=== PATIENT | female | born 1945 | race Caucasian/White ===

== ENCOUNTER 2021-03-06 09:36 | Inpatient (IN) | payer BC ==
[~2021-03-06] VITALS: Ht 175.3 cm; Wt 111.1 kg
[2021-03-06] MEDS ORDERED: [UNRECOGNIZED DRUG - OTHER] (10:18)
[2021-03-06] MEDS ORDERED: FLEET ENEMA133 ML RECTAL (10:19)
[2021-03-06] MEDS ORDERED: FUROSEMIDE 40 M40 MG PO (10:21)
[2021-03-06] MEDS ORDERED: ACETAMINOPHEN PO (10:21)
[2021-03-06] MEDS ORDERED: JANUVIA100 MG PO (10:21)
[2021-03-06] MEDS ORDERED: STOOL SOFTENER100 MG PO (10:22)
[2021-03-06] MEDS ORDERED: VITAMIN D250 MCG PO (10:22)
[2021-03-06] MEDS ORDERED: LEVOTHYROXINE100 MC2 PO (10:22)
[2021-03-06] MEDS ORDERED: KLOR-CON 10 ER10 MEQ PO (10:23)
[2021-03-06 10:31] LABS: ABSOLUTE BASOPHILS 0.1 thou/uL (0.0-0.2); ABSOLUTE EOSINOPHILS 0.3 thou/uL (0.0-0.7); ABSOLUTE MONOCYTES 1.1 thou/uL (0.0-1.2); ABSOLUTE NEUTROPHILS 7.7 thou/uL (1.6-8.1); BASOPHILS 1.3 %; HEMATOCRIT 39.9 % (37.0-47.0); HEMOGLOBIN 13.3 gm/dL (12.0-15.0); LYMPHOCYTES 17.8 %; MCH 32.9 pg (26.0-34.0); MCHC 33.3 g/dL (28.0-37.0); MCV 98.9 fL (80.0-100.0); MONOCYTES 9.7 %; MPV 9.9 fl. (7.2-11.1); NUCLEATED RBCS 0 /100WBC; PLATELET COUNT* 247 thou/uL (150-400); POLYS 68.2 %; RBC 4.03 mil/uL (4.20-5.00); RDW-CV 14.4 % (10.5-14.5); WBC 11.3 thou/uL (4.0-11.0)
[2021-03-06 10:44] LABS: URINE BILIRUBIN NEGATIVE (Negative); URINE BLOOD NEGATIVE (Negative); URINE CLARITY CLEAR; URINE COLOR YELLOW; URINE GLUCOSE-RANDOM NEGATIVE (Negative); URINE KETONES NEGATIVE (Negative); URINE LEUKOCYTES-REFLEX NEGATIVE (Negative); URINE NITRITE-REFLEX NEGATIVE (Negative); URINE PROTEIN TRACE (Negative); URINE SPECIFIC GRAVITY 1.015 (1.005-1.030)
[2021-03-06 10:48] LABS: CALCIUM 8.8 mg/dL (8.5-10.1); CREATININE 1.4 mg/dL (0.6-1.3); POTASSIUM 4.3 mmol/L (3.5-5.1)
[2021-03-06 10:52] LABS: ALBUMIN 3.4 g/dL (3.4-5.0); TOTAL BILIRUBIN 0.7 mg/dL (<0.1-1.0); TOTAL PROTEIN 7.7 g/dL (6.4-8.2)
--- NOTE | 2021-03-06 16:10 | EKG ---
[place] [address] ELECTROCARDIOGRAM REPORT Name: JIN CAR Room: [place] [address] ADM IN .R.#: [id number] Admission: 03/06/21 Attend Phys: Carlos Ramos, Discharge: Date of : 41 Date of Service: 03/06/21 0944 Report #: [id number] THIS REPORT FOR: //name// [facility] ED Test Date: 2021-03-06 Test Time: 09:44:50 Pat Name: JIN CAR Department: Room: [facility] Gender: F Steel Placer: SALOME : 1945 Requested By: Adilson Orr Order Number: [id number] MD: Simon Banuelos Measurements Intervals [place] Rate: 84 P: 87 OK: 200 QRS: -15 QRSD: 102 T: 29 QT: 383 QTc: 453 Interpretive Statements Sinus rhythm Ventricular premature complex Left atrial enlargement Borderline left axis deviation Low voltage, precordial leads No previous ECG available for comparison Electronically Signed On 03-06-2021 16:10:18 CDT by Simon Banuelos [email or web address] <ELECTRONICALLY SIGNED> By: Simon Banuelos MD, [facility] 03/06/21 1610 0944 0944 Simon Banuelos MD, [facility] /EPI
[2021-03-06 17:12] VITALS: BP 128/59
[2021-03-06 21:00] VITALS: BP 139/53
[2021-03-07 01:00] VITALS: BP 98/38
[2021-03-07 03:59] LABS: ABSOLUTE BASOPHILS 0.1 thou/uL (0.0-0.2); ABSOLUTE EOSINOPHILS 0.3 thou/uL (0.0-0.7); ABSOLUTE LYMPHOCYTES 1.8 thou/uL (0.8-5.3); ABSOLUTE MONOCYTES 1.1 thou/uL (0.0-1.2); ABSOLUTE NEUTROPHILS 6.6 thou/uL (1.6-8.1); BASOPHILS 0.8 %; EOSINOPHILS 2.9 %; HEMATOCRIT 35.4 % (37.0-47.0); LYMPHOCYTES 18.1 %; MCHC 33.8 g/dL (28.0-37.0); MCV 100.4 fL (80.0-100.0); MONOCYTES 11.3 %; MPV 9.5 fl. (7.2-11.1); NUCLEATED RBCS 0 /100WBC; PLATELET COUNT* 223 thou/uL (150-400); POLYS 66.9 %; RBC 3.52 mil/uL (4.20-5.00); RDW-CV 14.2 % (10.5-14.5); WBC 9.9 thou/uL (4.0-11.0)
[2021-03-07 04:23] LABS: CREATININE 1.4 mg/dL (0.6-1.3); POTASSIUM 4.2 mmol/L (3.5-5.1)
[2021-03-07 05:00] VITALS: BP 104/39
[2021-03-07 08:53] VITALS: BP 120/39
--- NOTE | 2021-03-07 14:31 | NUR ---
CM ASSESSMENT: PT A&O, NORMALLY INDEPENDENT WITH ADL'S, AND ACTIVE. PT RESIDES AT HOME WITH SPOUSE. PT'S SPOUSE DOES ALL DRIVING FOR THE HOUSEHOLD. 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 PT USES WALKER FOR MOBILITY. PT HAS PAST HX OF HH. PT HAS PAST HX AT [facility] SNF. CM WILL REMAIN AVAILABLE TO ASSIST AND FOLLOW NEEDED.
--- NOTE | 2021-03-07 15:16 | NUR ---
WOUND NURSE: PATIENT SEEN TO ADDRESS LESIONS ON BILATERAL LOWER EXTREMITIES. PRESENTS WITH ONE SHALLOW LESON ON RIGHT PRETIBIAL ASPECT MEASURING 4.8 X 2.0 X 0.1 CM. PRESNTS WITH PINK NONGRANULATING TISSUE IN THE WOUND BED. TWO LESIONS ON THE LLE, ANTERIOR 4.0 X 2.2 X 0.1 CM. MEDIAL 3.4 X 2.5 X 0.1 CM ALSO WITH PINK NONGRANULATING TISSUE IN THE WOUND. SMALL AMOUNT OF SEROUSANGUINOUS DRAINAGE PRESENT. TRACE PITTING EDEMA BLE. LOWER LEGS AND FEET COLD WITH RUBOR IN DISTAL FEET AND TOES. TOES WITH CAPILARY REFILL > 3 SECONDS. BLE CLEANSED WITH SOAP AND WATER, RINSED, THEN PATTED DRY. APPLIED AQUACEL AG TO EACH WOUND AND COVERED WITH ABDS, WRAPPED IWTH KERLEX AND SECURED WITH TAPE. PATIENT WAS SEEN BY DR HERNANDEZ AND ARTERIAL STUDY TO BLE ORDERED. PATIENT INSTRUCTED ON MEASURES TO PROMOTE HEALING AND PREVENT COMPLICATIONS. STATES SHE UNDERSTANDS.
[2021-03-07 16:26] VITALS: BP 110/31
--- NOTE | 2021-03-07 18:13 | NUR ---
PATIENT ARRIVED TO UNIT FROM ER AT APPROX. 0915. PATIENT IS A&OX4, PLEASANT AND COOPERATIVE WITH CARES. PATIENT HAS WOUNDS TO BLE AND WAS SEEN BY WOUND CARE NURSE WELL PODIATRY. PATIENT HAS ONLY REQUIRED PRN PAIN MEDICATION X1 TODAY WITH COMPLETE RESULTS. PUREWICK IS IN PLACE PATIENT IS BEDREST. CALL LIGHT AND FREQUENTLY USED ITEMS WITHIN REACH.
[2021-03-07 19:26] VITALS: BP 115/40
[2021-03-08 08:00] VITALS: BP 124/88
[2021-03-08 08:01] VITALS: BP 124/88
--- NOTE | 2021-03-08 13:34 | NUR ---
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
[2021-03-08 14:59] VITALS: BP 124/88
--- NOTE | 2021-03-08 14:59 | NUR ---
Therapies evaluated Pt, both PT and OT recommending home with HH. CM spoke with Pt, plan dc to home tomorrow with [facility] . CM faxed initial referral, dc orders will need to be faxed tomorrow to [phone]. CM updated Pt's on POC.
[2021-03-08 16:00] VITALS: BP 123/53
--- NOTE | 2021-03-08 18:09 | NUR ---
PATIENT RESTING IN BED. ALERT AND ORIENTED X4. PERIWICK INPLACE TO CONTINUOUS SUCTION WITHOUT DIFFICULTIES. Q2 TURNS. IV TO LEFT AC, SALINE LOCKED, PATENT. ULCER TO LEGS, UNABLE TO ASSESS DUE TO DRESSINGS. DRESSINGS C/D/I. C/O PAIN, HYDROCODONE X1 GIVEN. BLOOD SUGARS MONITORED, NO INSULIN GIVEN. BED IN LOW/LOCKED POSTION. CALL LIGTH WITHIN REACH. ALL QUESTIONS AND CONCERNS ADDRESSED.
[2021-03-08 20:00] VITALS: BP 150/56
--- NOTE | 2021-03-09 04:53 | NUR ---
PT A&O X 4. ON RA. MEDS GIVEN ORDERED. HYDROCODONE GIVEN X1 FOR PAIN. PUREWICK IN PLACE. DRESSINGS C/D/I. CALL LIGHT WITHIN REACH. WILL CONTINUE TO MONITOR.
[2021-03-09 05:22] LABS: HEMATOCRIT 36.3 % (37.0-47.0); HEMOGLOBIN 12.1 gm/dL (12.0-15.0); MCH 33.1 pg (26.0-34.0); MCHC 33.4 g/dL (28.0-37.0); MCV 99.1 fL (80.0-100.0); MPV 9.8 fl. (7.2-11.1); RBC 3.66 mil/uL (4.20-5.00); RDW-CV 14.1 % (10.5-14.5); WBC 7.8 thou/uL (4.0-11.0)
[2021-03-09 05:47] LABS: CALCIUM 8.3 mg/dL (8.5-10.1); CREATININE 1.3 mg/dL (0.6-1.3); POTASSIUM 3.9 mmol/L (3.5-5.1)
[2021-03-09 09:15] VITALS: BP 129/58
[2021-03-09 16:00] VITALS: BP 133/50
[2021-03-09 20:55] VITALS: BP 127/44
--- NOTE | 2021-03-10 05:04 | NUR ---
PATIENT HAS REMAINED ALERT AND ORIENTED X 4 WITH SLIGHT FORGETFULNESS. UP TO BSC WITH MIN/MOD ASSIST OF 2. MEDICATED FOR PAIN X 1 OF THIS WRITING. TURNED Q2H. FALL PRECAUTIONS IN PLACE. VITAL SIGNS STABLE. CONTINUE TO MONITOR.
[2021-03-10 07:50] VITALS: BP 114/36
[2021-03-10 17:32] VITALS: BP 92/63
[2021-03-10 21:35] VITALS: BP 120/39
--- NOTE | 2021-03-11 04:52 | NUR ---
PATIENT HAS REMAINED ALERT AND ORIENTED X 4 THROUGHOUT THE SHIFT. HAS NOT REQUIRED PRN PAIN MEDICATION OF THIS WRITING FOR THIS SHIFT. UP TO BSC WITH MOD ASSIST OF ONE, GAIT BELT AND WALKER. VITAL SIGNS STABLE WITH SOFT BP. MEDICATED FOR CONSTIPATION AT HS. NO RESULTS AT PRESENT. FALL PRECAUTIONS IN PLACE. CONTINUE TO MONITOR.
[2021-03-11 08:30] VITALS: BP 131/54
--- NOTE | 2021-03-11 13:21 | NUR ---
Wound care to see. Podiatry following. CM spoke with Pt this AM, Pt stated that she did not want to dc to SNF, she wants to go home with [facility], but she wants her feet to stop bleeding. spoke with Pt, Pt now in agreement with SNF. Therapies to see today. CM to fax referral to [facility] once evals complete. Following.
[2021-03-11 16:55] VITALS: BP 104/48
--- NOTE | 2021-03-11 17:18 | NUR ---
WOUND NURSE: PATIENT SEEN FOR FOLLOW UP ASSESSMENT PERTAINING TO BLE VASCULAR WOUNDS. WOUND BED IS RED, SHALLOW, AND MOIST. THERE IS A SMALL AMOUNT OF SEROUSANGUINOUS DRAINAGE FROM EACH WOUND. WOUND EDGES WITH PINK SCAR TISSUE FORMATION AROUND THE EDGES. WOUND CARE PROVIDED PRESCRIBED. THIS WAS TOLERATED WELL BY THE PATIENT. PATIENT REINSTRUCTED ON REPORTABLE S/S ANDON MEASURES TO PROMOTE HEALING. STATES SHE UNDERSTANDS.
--- NOTE | 2021-03-11 20:29 | NUR ---
ASSESSMENT DOCUMENTED. MEDS GIVEN PER E-OCT. IV PATENT. PT REPOSITIONED PER E-MAR. PT UP TO BSC WITH ASSIST. FALL PRECAUTIONS IN PLACE. WOUND CARE CHANGED DRESSINGS THIS SHIFT. WILL CONTINUE WITH PLAN OF CARE.
[2021-03-11 21:00] VITALS: BP 113/42
[2021-03-12 04:42] LABS: HEMATOCRIT 34.9 % (37.0-47.0); HEMOGLOBIN 11.8 gm/dL (12.0-15.0); MCH 33.2 pg (26.0-34.0); MCHC 33.8 g/dL (28.0-37.0); MCV 98.2 fL (80.0-100.0); MPV 9.3 fl. (7.2-11.1); RBC 3.55 mil/uL (4.20-5.00); RDW-CV 14.2 % (10.5-14.5); WBC 7.4 thou/uL (4.0-11.0)
[2021-03-12 04:58] LABS: ALBUMIN 2.7 g/dL (3.4-5.0); CALCIUM 8.5 mg/dL (8.5-10.1); CREATININE 1.7 mg/dL (0.6-1.3); MAGNESIUM 2.3 mg/dL (1.8-2.4); POTASSIUM 3.8 mmol/L (3.5-5.1); TOTAL BILIRUBIN 0.3 mg/dL (<0.1-1.0); TOTAL PROTEIN 6.4 g/dL (6.4-8.2)
[2021-03-12 07:15] VITALS: BP 136/52
--- NOTE | 2021-03-12 07:53 | NUR ---
PATIENT SLEPT MOST OF THE NIGHT. IV REMAINS SALINE LOCKED. PATIENT HAD NO COMPLAINTS OF PAIN. BLE WRAPS REMAIN IN PLACE. WILL CONTINUE TO MONITOR.
--- NOTE | 2021-03-12 13:57 | NUR ---
Pt medically stable to dc, pending insurance auth for SNF at [facility].
--- NOTE | 2021-03-12 16:28 | NUR ---
PT REMAINED ALERT AND ORIENTED. PT RESTING IN BED. PT DENIES ANY PAIN AT THIS TIME. DONUT BROUGHT IN FOR PATIENTS BOTTOM TO SIT ON TO HELP HEAL WOUNDS. Q2 TURNS COMPLETED. FALL RISK PRECAUTIONS IN PLACE. HOURLY ROUNDING COMPLETED
[2021-03-12 16:54] VITALS: BP 122/39
[2021-03-13 00:10] VITALS: BP 147/59
--- NOTE | 2021-03-13 07:48 | NUR ---
PT SLEPT WELL OVERNIGHT. UP WITH ASSIST TO BSC. LAC SL IV. COMPRESSION DRSG CDI TO BLE. PT TURNED AND REPOSITIONED Q2 HOURS AND PRN. PT ANTICIPATING DISCHARGE TO SNF TODAY.
[2021-03-13 08:00] VITALS: BP 130/64
[2021-03-13] MEDS ORDERED: HYDROCODON-ACE1 EAC7 PO (10:03)
[2021-03-13] MEDS ORDERED: LIDOPATCH1 EACH TOP (10:03)
[2021-03-13 15:44] VITALS: BP 151/56
--- NOTE | 2021-03-13 16:08 | NUR ---
Insurance denied SNF, Per , plan home with HH tomorrow.
--- NOTE | 2021-03-13 18:54 | NUR ---
PT PROGRESSING TOWARDS DC GOALS PT SHOULD BE DISMISSED TOMORROW, INSTEAD OF GOING TO REHAB UNIT FOR MORE THERAPY. WILL CONTINUE TO MONITOR PLAN OF CARE.
[2021-03-13 20:00] VITALS: BP 105/51
--- NOTE | 2021-03-14 07:14 | NUR ---
Alert and oriented x 4. She is up with stand by assist to bedside commode. She denies need for pain meds. She is supposed to be discharged today and she is ready to go. Lower extremities are wrapped in acewrap bandages that are dry and intact. She is up in her chair this am.
[2021-03-14 08:44] VITALS: BP 118/52
[2021-03-14 11:48] VITALS: BP 124/88
--- NOTE | 2021-03-14 14:41 | NUR ---
Pt discharging to home today with [facility] HH. Faxed dc orders. [facility] to provide dc transportation, will cotton picker operator between [phone]
[2021-03-14 15:00] VITALS: BP 124/88
--- NOTE | 2021-03-14 18:24 | NUR ---
PT DC TO HOME WITH HH AT 1700 BY WHEELCHAIR VAN. IV OUT. PT STABLE. DRESSINGS CHANGED BEFORE DC.
== END 2021-03-14 17:00 | disposition home health service (06) | DRG 543 ==
LOC: M.ERS 09:36 → M.TBA-ER 13:12 → M.3W 13:12
PROVIDERS: Emergency Medicine Emergency Medical Services; Internal Medicine; ADMIT Internal Medicine; ATTEND Internal Medicine
DX: M48.48XA Fatigue fracture of vertebra, sacral and sacrococcygeal region, initial encounter for fracture (principal); L03.116 Cellulitis of left lower limb; L03.115 Cellulitis of right lower limb; L97.929 Non-pressure chronic ulcer of unspecified part of left lower leg with unspecified severity; L97.919 Non-pressure chronic ulcer of unspecified part of right lower leg with unspecified severity; E66.9 Obesity, unspecified; J44.9 Chronic obstructive pulmonary disease, unspecified; Z20.822 Contact with and (suspected) exposure to COVID-19; I50.9 Heart failure, unspecified; M51.36 Other intervertebral disc degeneration, lumbar region; I89.0 Lymphedema, not elsewhere classified; I87.8 Other specified disorders of veins; N18.30 Chronic kidney disease, stage 3 unspecified; E11.22 Type 2 diabetes mellitus with diabetic chronic kidney disease; Z90.710 Acquired absence of both cervix and uterus; Z90.49 Acquired absence of other specified parts of digestive tract; Z87.891 Personal history of nicotine dependence; Z79.899 Other long term (current) drug therapy